=== PATIENT | male | born 1955 | race Caucasian/White ===

== ENCOUNTER 2019-02-22 00:34 | Emergency (ER) | payer OTHER, BC ==
[2019-02-22] MEDS ORDERED: IPRATROPIUM/ALBUTEROL 0.5-2.5 MG/3 ML AMPUL NEB ONE ×2 (01:19)
[2019-02-22] MEDS ORDERED: METHYLPREDNISOLONE INJ 125 MG/2 ML SDV IV ONE (01:19)
[2019-02-22 01:30] LABS: ABSOLUTE BASOPHILS # (AUTO) 0.1 10^3/uL (0.0-0.2); ABSOLUTE EOSINOPHILS # (AUTO) 0.4 10^3/uL (0.0-0.6); ABSOLUTE LYMPHOCYTES (AUTO) 1.5 10^3/uL (0.5-4.7); ABSOLUTE MONOCYTES (AUTO) 1.2 10^3/uL (0.1-1.4); ABSOLUTE NEUT (AUTO) 6.5 10^3/uL (1.7-8.2); BASOPHILS % (AUTO) 1.2 % (0-2); EOSINOPHILS % (AUTO) 4.3 % (0-6); HEMATOCRIT 47.3 % (37.9-51.0); HEMOGLOBIN 16.2 g/dL (13.5-17.0); LYMPHOCYTES % (AUTO) 15.5 % (13-45); MEAN CORPUSCULAR HEMOGLOBIN 31.7 pg (27.0-33.4); MEAN CORPUSCULAR HGB CONC 34.3 g/dL (32.0-36.0); MEAN CORPUSCULAR VOLUME 92 fl (80-97); MONOCYTES % (AUTO) 12.4 % (3-13); PLATELET COUNT 257 10^3/uL (150-450); RED BLOOD COUNT 5.13 10^6/uL (4.35-5.55); RED CELL DISTRIBUTION WIDTH 12.8 % (11.5-14.0); SEGMENTED NEUTROPHILS % (AUTO) 66.6 % (42-78); TOTAL CELLS COUNTED % (AUTO) 100 %; WHITE BLOOD COUNT 9.8 10^3/uL (4.0-10.5)
--- NOTE | 2019-02-22 01:32 | ER Document Report ---
ED Respiratory Problem - General Chief Complaint: Shortness Of Breath Stated Complaint: SHORTNESS OF BREATH Time Seen by Provider: 02/22/19 01:14 Primary Care Provider: ABELARDO MANUEL [Primary Care Provider] - Follow up as needed Notes: Patient is a 64-year-old male that comes to the emergency department for chief complaint of shortness of breath since yesterday. He denies fever, chest pain, or any locations of pain. He has been coughing up some sputum. He states he was diagnosed with bronchitis, treated with penicillin and steroids about 1.5 weeks ago, he states symptoms completely resolved and he felt fine until yesterday. He continues to smoke, he does not report being diagnosed with COPD or asthma, he does not wear oxygen at home or have albuterol at home. Remaining medical history is hypertension and hyperlipidemia. TRAVEL OUTSIDE OF THE [place] IN LAST 30 DAYS: No - Related Data Allergies/Adverse Reactions: No Known Allergies Allergy (Verified 02/22/19 00:59) Home Medications: lisinopril. lipitor. low dose asa Past Medical History - General Information source: Patient - Social History Smoking Status: Current Every Day Smoker Smoking Education Provided: Yes - <3 min Drug Abuse: None Lives with: Family Family History: Reviewed & Not Pertinent Patient has suicidal ideation: No Patient has homicidal ideation: No - Past Medical History Cardiac Medical History: Reports: Hx Hypercholesterolemia, Hx Hypertension Pulmonary Medical History: Reports: Hx COPD - Immunizations Immunizations up to date: Yes Hx Diphtheria, Pertussis, Tetanus Vaccination: Yes Review of Systems - Review of Systems Constitutional: No symptoms reported EENT: No symptoms reported Cardiovascular: No symptoms reported Respiratory: See HPI Gastrointestinal: No symptoms reported Genitourinary: No symptoms reported Male Genitourinary: No symptoms reported Musculoskeletal: No symptoms reported Skin: No symptoms reported Hematologic/Lymphatic: No symptoms reported Neurological/Psychological: No symptoms reported Physical Exam - Vital signs Vitals: Temp Pulse Resp BP 97.9 F 97 22 H 125/80 02/22/19 00:44 02/22/19 00:44 02/22/19 00:44 02/22/19 00:44 - Notes Notes: GENERAL: Alert, interacts well. HEAD: Normocephalic, atraumatic. EYES: Pupils equal, round, and reactive to light. Extraocular movements intact. ENT: Oral mucosa moist, tongue midline. Oropharynx unremarkable. Airway patent. NECK: Full range of motion. Supple. Trachea midline. LUNGS: Patient has tachypnea with slightly labored breathing. Decreased breath sounds throughout with expiratory wheezes. Occasional coughing episodes. HEART: Regular rate and rhythm. No murmur ABDOMEN: Soft, non-tender. Non-distended. EXTREMITIES: Moves all 4 extremities spontaneously. No edema, normal radial and dorsalis pedis pulses bilaterally. No cyanosis. BACK: no cervical, thoracic, lumbar midline tenderness. No saddle anesthesia, normal distal neurovascular exam. Moves all extremities in full range of motion. NEUROLOGICAL: Alert and oriented x3. Normal speech. Cranial nerves II through XII grossly intact. PSYCH: Normal affect, normal mood. SKIN: Warm, dry, normal turgor. No rashes or lesions noted. Course - Re-evaluation Re-evalutation: Initially patient noted to have labored breathing, decreased breath sounds, expiratory wheezes, tachypnea. He is not hypoxic. He was placed on oxygen, given steroids, duo nebs, he will be closely reevaluated. CBC unremarkable, chemistry unremarkable, troponin unremarkable. Venous blood gas unremarkable. Chest x-ray shows COPD but is otherwise unremarkable. Patient never had chest pain. On reevaluation the symptoms have completely resolved. Patient speaking in full sentences, labored breathing is gone, lungs are clear, patient states he feels great and is ready to leave. Patient ambulated without any tachypnea, hypoxia, or tachycardia. Discussed COPD on x-ray, work-up, treatment at home, recommendations, return precautions. Patient states appreciation and agreement. Stable at time of discharge. - Vital Signs Vital signs: Temp Pulse Resp BP Pulse Ox 97.9 F 97 15 134/61 H 100 02/22/19 00:53 02/22/19 00:44 02/22/19 02:01 02/22/19 02:01 02/22/19 02:01 - Laboratory Result Diagrams: 02/22/19 01:09 02/22/19 01:09 Discharge - Discharge Clinical Impression: Wheezing, Difficulty breathing Condition: Stable Disposition: HOME, SELF-CARE Additional Instructions: Your evaluation is consistent with bronchitis and probably a COPD exacerbation. Take prednisone as prescribed, use albuterol if needed as prescribed. Your x-ray is suggestive of a developing COPD. Follow-up with primary care for additional management of this. Stop smoking. Come back if you are worse including spiking fever, increased difficulty breathing, or any other concerning or worsening symptoms. Prescriptions: Prednisone [Deltasone 20 mg Tablet] 3 tab PO DAILY 5 Days #15 tablet Albuterol Sulfate [Proair HFA Inhalation Aerosol 8.5 gm MDI] 2 puff IH Q4H PRN #1 mdi PRN Reason: Referrals: [facility] [Primary [facility]] - Follow up as needed
--- NOTE | 2019-02-22 01:51 | RADIOLOGY REPORT (SQ) ---
EXAM DESCRIPTION: X-RAY CHEST- TWO VIEWS CLINICAL HISTORY: Shortness of breath COMPARISON: None available TECHNIQUE: 2 frontal views of the chest FINDINGS: There are overlying EKG leads. Hyperexpanded appearance with flattening of the diaphragms is suggestive of underlying COPD. There are no discrete air space infiltrates, pneumothoraces or pleural effusions. The pulmonary vascularity is normal. The cardiomediastinal silhouette is normal in size. No suspicious lytic or blastic osseous lesions are identified. IMPRESSION: There are no acute lung parenchymal findings. Hyperexpanded appearance with flattening of the diaphragms is suggestive of COPD.
[2019-02-22 02:05] LABS: VENOUS BLOOD BASE EXCESS 1.3 mmol/L; VENOUS BLOOD PCO2 41.3 mmHg (35-63); VENOUS BLOOD PH 7.42 (7.30-7.42)
[2019-02-22 02:07] LABS: ALBUMIN 4.4 g/dL (3.5-5.0); ALKALINE PHOSPHATASE 86 U/L (38-126); ANION GAP 8 (5-19); ASPARTATE AMINO TRANSFERASE 28 U/L (17-59); BILIRUBIN,DIRECT 0.2 mg/dL (0.0-0.4); BILIRUBIN,TOTAL 0.4 mg/dL (0.2-1.3); BLOOD UREA NITROGEN 20 mg/dL (7-20); CALCIUM 9.3 mg/dL (8.4-10.2); CARBON DIOXIDE 29 mmol/L (22-30); CHLORIDE 105 mmol/L (98-107); GLUCOSE 96 mg/dL (75-110); POTASSIUM 4.2 mmol/L (3.6-5.0); TOTAL PROTEIN 7.1 g/dL (6.3-8.2)
[2019-02-22] MEDS ORDERED: ALBUTEROL SULFATE HFA (90 MCG/PUFF) 8 GM MDI (1 MDI/ER DISP) IH ONE (02:46)
[2019-02-22 02:50] VITALS: BP 134/61
== END 2019-02-22 03:05 | disposition home or self-care (01) ==
LOC: ER 00:34
DX: J44.9 Chronic obstructive pulmonary disease, unspecified (principal); R06.02 Shortness of breath; R05 Cough; F17.200 Nicotine dependence, unspecified, uncomplicated; I10 Essential (primary) hypertension; Z79.899 Other long term (current) drug therapy; Z79.82 Long term (current) use of aspirin
CPT/HCPCS: 94640 ×2; 99283; 96374; 36415; 85025; 80053; 84484; 82803; 71045; J2930; J3490; J7620